=== PATIENT | female | born 1940 | race Caucasian/White ===

== ENCOUNTER → 2016-08-13 | Outpatient (CLI) | payer MEDICARE, MEDICAID ==
[~2016-08-13] MED LIST: BENA10TA3 PO; BUSP15 PO; CHOL200018 PO; CLON.2 PO; FAMO20 PO; FISH1CAP27 PO; FLUO-191 PO; GLIM4 PO; METF500T4 PO; SIMV-259 PO; SITA100 PO; SULF-168 PO; TRAVZOS OU; TRAZ-144 PO; VERA240SR PO
== END | disposition home or self-care (01) ==
LOC: RADPV 14:26
PROVIDERS: ATTEND Legal Medicine
DX: M50.321 Other cervical disc degeneration at C4-C5 level (principal); M50.322 Other cervical disc degeneration at C5-C6 level; M50.323 Other cervical disc degeneration at C6-C7 level; M47.812 Spondylosis without myelopathy or radiculopathy, cervical region; M25.78 Osteophyte, vertebrae; M51.36 Other intervertebral disc degeneration, lumbar region; M51.37 Other intervertebral disc degeneration, lumbosacral region; M47.816 Spondylosis without myelopathy or radiculopathy, lumbar region; I70.0 Atherosclerosis of aorta; M47.814 Spondylosis without myelopathy or radiculopathy, thoracic region; M19.012 Primary osteoarthritis, left shoulder; M25.812 Other specified joint disorders, left shoulder
CPT/HCPCS: 72040; 72070; 72100

== ENCOUNTER → 2017-05-26 | Outpatient (CLI) | payer MEDICARE, MEDICAID | END | disposition home or self-care (01) | LOC: RADPV 07:43 | PROVIDERS: ATTEND Legal Medicine | DX: M19.012 Primary osteoarthritis, left shoulder (principal); M75.32 Calcific tendinitis of left shoulder; M19.042 Primary osteoarthritis, left hand; M51.37 Other intervertebral disc degeneration, lumbosacral region; M46.06 Spinal enthesopathy, lumbar region | CPT/HCPCS: 72100 ==

== ENCOUNTER 2017-06-11 21:06 | Emergency (ER) | payer MEDICARE, MEDICAID ==
[~2017-06-11] VITALS: Ht 160 cm; Wt 90.5 kg
[~2017-06-11 21:06] MED LIST changes: +ASPI-1182 PO; -BENA10TA3 PO; +BENA20 PO; +BETH25 PO; +DULO60CA44 PO; -FLUO-191 PO; +ICOS1CAP PO; +LINA5TAB PO; +NAPR-58 PO; +QUET25TA PO; -SITA100 PO; -SULF-168 PO; -TRAVZOS OU
[2017-06-11 21:57] LABS: BASOPHILS % (AUTO) 0.8 % (0.0-2.0); EOSINOPHILS % (AUTO) 3.5 % (1.0-6.0); HEMATOCRIT 35.7 % (36-46); HEMOGLOBIN 12.1 g/dL (12.0-16.0); LYMPHOCYTES # (AUTO) 2.2 K/uL (1.0-4.8); LYMPHOCYTES % (AUTO) 26.3 % (22.0-44.0); MEAN CORPUSCULAR HEMOGLOBIN 28.7 pg (26.0-34.0); MEAN CORPUSCULAR HGB CONC 33.9 G/dL (31.0-37.0); MEAN CORPUSCULAR VOLUME 85 fL (80-100); MONOCYTES # (AUTO) 0.6 K/uL (0.1-1.0); MONOCYTES % (AUTO) 7.2 % (2.0-9.0); NEUTROPHILS # (AUTO) 5.3 K/uL (1.8-7.7); NEUTROPHILS % (AUTO) 62.2 % (40.0-70.0); PLATELET COUNT (AUTO) 255 K/uL (150-450); RED BLOOD CELL COUNT(AUTO) 4.22 MIL/uL (4.00-5.20); RED CELL DISTRIBUTION WIDTH 14.4 % (11.5-14.5)
[2017-06-11 22:01] LABS: CALCIUM, TOTAL 9.6 mg/dL (8.8-10.5); CREATININE 1.43 mg/dL (0.60-1.30); POTASSIUM 4.7 mmol/L (3.5-5.1)
[2017-06-11 22:05] LABS: PROTHROMBIN TIME 10.7 SEC (9.4-11.6)
[2017-06-11 22:06] LABS: ALBUMIN 3.4 g/dL (3.4-5.0); BILIRUBIN,TOTAL 0.4 mg/dL (0.1-1.0); TOTAL PROTEIN, SERUM 7.7 g/dL (6.4-8.2)
[2017-06-11] MEDS ORDERED: SODIUM CHLORIDE 0.9% 500 ML IV ONE (23:30)
[2017-06-12 00:11] VITALS: BP 115/60
[2017-06-12 14:05] LABS: GLUCOSE,POINT OF CARE 132 MG/DL (70-110)
== END 2017-06-12 00:23 | disposition home or self-care (01) ==
LOC: EMS 21:07
DX: S06.2X9A Diffuse traumatic brain injury with loss of consciousness of unspecified duration, initial encounter (principal); E86.0 Dehydration; R55 Syncope and collapse; E11.9 Type 2 diabetes mellitus without complications; K21.9 Gastro-esophageal reflux disease without esophagitis; E78.00 Pure hypercholesterolemia, unspecified; I10 Essential (primary) hypertension; Z79.82 Long term (current) use of aspirin; W18.2XXA Fall in (into) shower or empty bathtub, initial encounter; Y93.E1 Activity, personal bathing and showering; Y92.89 Other specified places as the place of occurrence of the external cause; Y99.8 Other external cause status
CPT/HCPCS: 70450; 71045; 80053; 81002; 82962; 84484; 85025; 85610; 93005; 99285; J7040

== ENCOUNTER 2017-11-08 16:37 | Emergency (ER) | payer MEDICARE, MEDICAID ==
[~2017-11-08] VITALS: Ht 160 cm; Wt 109.1 kg
[~2017-11-08 16:37] MED LIST changes: -METF500T4 PO; +METF500T6 PO; -TRAZ-144 PO; +TRAZ-219 PO
[2017-11-08 17:03] LABS: GLUCOSE,POINT OF CARE 127 MG/DL (70-110)
[2017-11-08] MEDS ORDERED: TraMADol HCL 50 MG TABLET PO ONE (18:15)
[2017-11-08 20:28] VITALS: BP 115/56
== END 2017-11-08 21:04 | disposition home or self-care (01) ==
LOC: EMS 16:38
DX: M54.5 Low back pain (principal); K21.9 Gastro-esophageal reflux disease without esophagitis; E78.00 Pure hypercholesterolemia, unspecified; I10 Essential (primary) hypertension; F32.9 Major depressive disorder, single episode, unspecified; E11.9 Type 2 diabetes mellitus without complications; Z79.82 Long term (current) use of aspirin; Z79.84 Long term (current) use of oral hypoglycemic drugs
CPT/HCPCS: 72110; 99284

== ENCOUNTER 2017-12-18 21:58 | Emergency (ER) | payer MEDICARE, MEDICAID ==
[~2017-12-18] VITALS: Ht 162.6 cm; Wt 100.0 kg
[~2017-12-18 21:58] MED LIST changes: +ACET-2247 PO; +AMLO-511 PO; +APIX2.5T PO; +AUD NEB; +BISA10S PR; +CEFT1FRO3 IVPB; +INSU100V SQ; +METF-960 PO; -METF500T6 PO; +METO-558 PO; +ONDA4 PO; +PANT40TA25 PO
[2017-12-18] MEDS ORDERED: LINA5TAB PO (22:30)
[2017-12-18] MEDS ORDERED: ZOLP10TA7 PO (22:30)
[2017-12-18 22:50] LABS: BASOPHILS % (AUTO) 1.2 % (0.0-2.0); EOSINOPHILS % (AUTO) 3.6 % (1.0-6.0); HEMATOCRIT 29.5 % (36-46); HEMOGLOBIN 9.8 g/dL (12.0-16.0); LYMPHOCYTES # (AUTO) 2.4 K/uL (1.0-4.8); LYMPHOCYTES % (AUTO) 39.9 % (22.0-44.0); MEAN CORPUSCULAR HEMOGLOBIN 28.4 pg (26.0-34.0); MEAN CORPUSCULAR HGB CONC 33.3 G/dL (31.0-37.0); MEAN CORPUSCULAR VOLUME 85 fL (80-100); MONOCYTES # (AUTO) 0.5 K/uL (0.1-1.0); MONOCYTES % (AUTO) 8.1 % (2.0-9.0); NEUTROPHILS # (AUTO) 2.8 K/uL (1.8-7.7); NEUTROPHILS % (AUTO) 47.2 % (40.0-70.0); PLATELET COUNT (AUTO) 397 K/uL (150-450); RED BLOOD CELL COUNT(AUTO) 3.45 MIL/uL (4.00-5.20); RED CELL DISTRIBUTION WIDTH 16.9 % (11.5-14.5)
[2017-12-18 23:11] LABS: CALCIUM, TOTAL 9.2 mg/dL (8.8-10.5); CREATININE 1.38 mg/dL (0.60-1.30); POTASSIUM 3.3 mmol/L (3.5-5.1)
[2017-12-18 23:19] LABS: ALBUMIN 2.9 g/dL (3.4-5.0); BILIRUBIN,TOTAL 0.2 mg/dL (0.1-1.0)
[2017-12-19 00:26] VITALS: BP 112/68
== END 2017-12-19 01:22 | disposition home or self-care (01) ==
LOC: EMS 22:00
DX: R33.9 Retention of urine, unspecified (principal); I48.91 Unspecified atrial fibrillation; F32.9 Major depressive disorder, single episode, unspecified; E11.9 Type 2 diabetes mellitus without complications; E78.00 Pure hypercholesterolemia, unspecified; I10 Essential (primary) hypertension; F20.9 Schizophrenia, unspecified; Z79.01 Long term (current) use of anticoagulants; Z79.899 Other long term (current) drug therapy; Z79.84 Long term (current) use of oral hypoglycemic drugs
CPT/HCPCS: 51702; 99284

== ENCOUNTER 2018-03-03 10:36 | Emergency (ER) | payer MEDICARE, MEDICAID ==
[~2018-03-03] VITALS: Ht 162.6 cm; Wt 77.3 kg
[~2018-03-03 10:36] MED LIST changes: -ACET-2247 PO; -ASPI-1182 PO; -AUD NEB; -BENA20 PO; -BETH25 PO; -BISA10S PR; -BUSP15 PO; -CEFT1FRO3 IVPB; -DULO60CA44 PO; -FAMO20 PO; -ICOS1CAP PO; -INSU100V SQ; -METF-960 PO; -NAPR-58 PO; -ONDA4 PO; -TRAZ-219 PO; -VERA240SR PO; +ZOLP10TA7 PO
[2018-03-03 11:19] LABS: GLUCOSE,POINT OF CARE 425 MG/DL (70-110)
[2018-03-03] MEDS ORDERED: DOCU250C91 PO (11:21)
[2018-03-03] MEDS ORDERED: VITAD1000 PO (11:21)
[2018-03-03] MEDS ORDERED: BENA20 PO (11:21)
[2018-03-03] MEDS ORDERED: BETH25 PO (11:21)
[2018-03-03] MEDS ORDERED: OMEG-107 PO (11:21)
[2018-03-03] MEDS ORDERED: NAPR-58 PO (11:21)
[2018-03-03] MEDS ORDERED: ICOS0.5C PO (11:21)
[2018-03-03] MEDS ORDERED: SODIUM CHLORIDE 0.9% 1,000 ML IV ONE (11:30)
[2018-03-03 12:20] LABS: BASOPHILS % (AUTO) 0.6 % (0.0-2.0); HEMATOCRIT 35.9 % (36-46); HEMOGLOBIN 11.9 g/dL (12.0-16.0); LYMPHOCYTES # (AUTO) 1.5 K/uL (1.0-4.8); LYMPHOCYTES % (AUTO) 14.9 % (22.0-44.0); MEAN CORPUSCULAR HEMOGLOBIN 27.3 pg (26.0-34.0); MEAN CORPUSCULAR HGB CONC 33.1 G/dL (31.0-37.0); MEAN CORPUSCULAR VOLUME 83 fL (80-100); MONOCYTES # (AUTO) 0.5 K/uL (0.1-1.0); MONOCYTES % (AUTO) 5.3 % (2.0-9.0); NEUTROPHILS # (AUTO) 7.9 K/uL (1.8-7.7); NEUTROPHILS % (AUTO) 77.2 % (40.0-70.0); PLATELET COUNT (AUTO) 382 K/uL (150-450); RED BLOOD CELL COUNT(AUTO) 4.34 MIL/uL (4.00-5.20); RED CELL DISTRIBUTION WIDTH 14.3 % (11.5-14.5)
[2018-03-03] MEDS ORDERED: MORPHINE SULFATE 4 MG/ML SYRINGE IVP ONE (12:30)
[2018-03-03] MEDS ORDERED: ONDANSETRON HCL 4 MG/2 ML VIAL IVP ONE (12:30)
[2018-03-03 12:31] LABS: CALCIUM, TOTAL 9.2 mg/dL (8.8-10.5); CREATININE 1.14 mg/dL (0.60-1.30); POTASSIUM 3.8 mmol/L (3.5-5.1)
[2018-03-03 12:37] LABS: ALBUMIN 3.1 g/dL (3.4-5.0); BILIRUBIN,TOTAL 0.3 mg/dL (0.1-1.0); TOTAL PROTEIN, SERUM 8.5 g/dL (6.4-8.2)
[2018-03-03 14:22] LABS: APPEARANCE,URINE CLOUDY (CLEAR); BILIRUBIN,URINE NEGATIVE (NEGATIVE); GLUCOSE, URINE (UA) >=1000 mg/dL (NEGATIVE); KETONES,URINE NEGATIVE (NEGATIVE); LEUKOCYTE ESTERASE ,URINE SMALL (NEGATIVE); NITRATE,URINE NEGATIVE (NEGATIVE); OCCULT BLOOD,URINE LARGE (NEGATIVE); PROTEIN,URINE TRACE (NEGATIVE); UROBILINOGEN,URINE 0.2 mg/dL (<=1.0)
[2018-03-03 14:24] LABS: GLUCOSE,POINT OF CARE 246 MG/DL (70-110)
[2018-03-03 14:31] LABS: BACTERIA,URINE None Seen /HPF (None Seen); RBC,URINE 51-100 /HPF (0-2); SQUAMOUS EPITHELIAL CELL,UR Few /LPF (None Seen)
[2018-03-03 16:14] VITALS: BP 157/83
== END 2018-03-03 16:40 | disposition home or self-care (01) ==
LOC: EMS 10:37
DX: R19.7 Diarrhea, unspecified (principal); R31.9 Hematuria, unspecified; R10.30 Lower abdominal pain, unspecified; K92.1 Melena; I10 Essential (primary) hypertension; I48.91 Unspecified atrial fibrillation; E11.9 Type 2 diabetes mellitus without complications; K21.9 Gastro-esophageal reflux disease without esophagitis; E78.00 Pure hypercholesterolemia, unspecified; F20.9 Schizophrenia, unspecified; M19.90 Unspecified osteoarthritis, unspecified site
CPT/HCPCS: 36415; 80053; 81001; 82962; 83690; 85025; 87086; 96361; 96374; 96375; 99283; J2270; J2405; J7030

== ENCOUNTER 2018-03-04 09:43 | Emergency (ER) | payer MEDICARE, MEDICAID ==
[~2018-03-04] VITALS: Ht 172.7 cm; Wt 100.0 kg
[~2018-03-04 09:43] MED LIST changes: +BENA20 PO; +BETH25 PO; +DOCU250C91 PO; +ICOS0.5C PO; +NAPR-58 PO; +OMEG-107 PO; +VITAD1000 PO
[2018-03-04 10:19] LABS: GLUCOSE,POINT OF CARE 307 MG/DL (70-110)
[2018-03-04] MEDS ORDERED: IOVERSOL 350 MG/ML 150 ML VIAL ONE (11:41)
[2018-03-04] MEDS ORDERED: SODIUM CHLORIDE 0.9% 100 ML ONE (11:41)
[2018-03-04] MEDS ORDERED: ONDANSETRON HCL 4 MG/2 ML VIAL IVP ONE (12:00)
[2018-03-04] MEDS ORDERED: MORPHINE SULFATE 4 MG/ML SYRINGE IVP ONE (12:00)
[2018-03-04] MEDS ORDERED: ONDANSETRON HCL 4 MG/2 ML VIAL IM ONE (12:30)
[2018-03-04] MEDS ORDERED: MORPHINE SULFATE 4 MG/ML SYRINGE IM ONE (12:30)
[2018-03-04 13:24] LABS: BASOPHILS % (AUTO) 0.4 % (0.0-2.0); EOSINOPHILS % (AUTO) 1.2 % (1.0-6.0); HEMATOCRIT 35.6 % (36-46); HEMOGLOBIN 11.6 g/dL (12.0-16.0); LYMPHOCYTES # (AUTO) 1.7 K/uL (1.0-4.8); LYMPHOCYTES % (AUTO) 12.5 % (22.0-44.0); MEAN CORPUSCULAR HEMOGLOBIN 27.2 pg (26.0-34.0); MEAN CORPUSCULAR HGB CONC 32.6 G/dL (31.0-37.0); MEAN CORPUSCULAR VOLUME 83 fL (80-100); MONOCYTES # (AUTO) 0.5 K/uL (0.1-1.0); NEUTROPHILS # (AUTO) 11.2 K/uL (1.8-7.7); NEUTROPHILS % (AUTO) 81.9 % (40.0-70.0); PLATELET COUNT (AUTO) 388 K/uL (150-450); RED BLOOD CELL COUNT(AUTO) 4.28 MIL/uL (4.00-5.20); RED CELL DISTRIBUTION WIDTH 14.5 % (11.5-14.5)
[2018-03-04 13:34] LABS: CALCIUM, TOTAL 9.2 mg/dL (8.8-10.5); CREATININE 1.48 mg/dL (0.60-1.30); POTASSIUM 4.1 mmol/L (3.5-5.1)
[2018-03-04 13:40] LABS: ALBUMIN 3.2 g/dL (3.4-5.0); BILIRUBIN,TOTAL 0.3 mg/dL (0.1-1.0); TOTAL PROTEIN, SERUM 8.6 g/dL (6.4-8.2)
[2018-03-04 15:15] LABS: APPEARANCE,URINE CLOUDY (CLEAR); BILIRUBIN,URINE NEGATIVE (NEGATIVE); GLUCOSE, URINE (UA) 500 mg/dL (NEGATIVE); KETONES,URINE NEGATIVE (NEGATIVE); LEUKOCYTE ESTERASE ,URINE MODERATE (NEGATIVE); NITRATE,URINE NEGATIVE (NEGATIVE); OCCULT BLOOD,URINE LARGE (NEGATIVE); PH,URINE 5.5 (5.0-8.0); PROTEIN,URINE POS 1+ (NEGATIVE); UROBILINOGEN,URINE 0.2 mg/dL (<=1.0)
[2018-03-04 15:23] LABS: RBC,URINE >100 /HPF (0-2)
[2018-03-04 15:24] LABS: BACTERIA,URINE None Seen /HPF (None Seen); SQUAMOUS EPITHELIAL CELL,UR Few /LPF (None Seen)
[2018-03-04 15:59] VITALS: BP 139/71
== END 2018-03-04 16:16 | disposition home or self-care (01) ==
LOC: EMS 09:45
DX: N39.0 Urinary tract infection, site not specified (principal); I48.91 Unspecified atrial fibrillation; E11.9 Type 2 diabetes mellitus without complications; K21.9 Gastro-esophageal reflux disease without esophagitis; I10 Essential (primary) hypertension; E78.00 Pure hypercholesterolemia, unspecified; F20.9 Schizophrenia, unspecified; F32.9 Major depressive disorder, single episode, unspecified; M19.90 Unspecified osteoarthritis, unspecified site
CPT/HCPCS: 36415; 74177; 80053; 81001; 82962; 85025; 87086; 96372; 99284; J2270; J2405; J7050; Q9967

== ENCOUNTER 2018-03-09 15:01 | Emergency (ER) | payer MEDICARE, MEDICAID ==
[~2018-03-09] VITALS: Ht 162.6 cm; Wt 100.0 kg
[2018-03-09 18:00] LABS: BASOPHILS % (AUTO) 0.6 % (0.0-2.0); EOSINOPHILS % (AUTO) 2.3 % (1.0-6.0); HEMATOCRIT 36.7 % (36-46); HEMOGLOBIN 11.9 g/dL (12.0-16.0); LYMPHOCYTES # (AUTO) 2.7 K/uL (1.0-4.8); LYMPHOCYTES % (AUTO) 27.2 % (22.0-44.0); MEAN CORPUSCULAR HEMOGLOBIN 26.9 pg (26.0-34.0); MEAN CORPUSCULAR HGB CONC 32.6 G/dL (31.0-37.0); MEAN CORPUSCULAR VOLUME 83 fL (80-100); MONOCYTES # (AUTO) 0.5 K/uL (0.1-1.0); MONOCYTES % (AUTO) 5.3 % (2.0-9.0); NEUTROPHILS # (AUTO) 6.4 K/uL (1.8-7.7); NEUTROPHILS % (AUTO) 64.6 % (40.0-70.0); PLATELET COUNT (AUTO) 464 K/uL (150-450); RED BLOOD CELL COUNT(AUTO) 4.44 MIL/uL (4.00-5.20); RED CELL DISTRIBUTION WIDTH 14.2 % (11.5-14.5)
[2018-03-09 18:06] LABS: CALCIUM, TOTAL 9.5 mg/dL (8.8-10.5); CREATININE 1.25 mg/dL (0.60-1.30); POTASSIUM 3.9 mmol/L (3.5-5.1)
[2018-03-09 18:13] LABS: ALBUMIN 3.4 g/dL (3.4-5.0); BILIRUBIN,TOTAL 0.2 mg/dL (0.1-1.0); TOTAL PROTEIN, SERUM 8.9 g/dL (6.4-8.2)
[2018-03-09] MEDS ORDERED: AMLO-512 PO (19:09)
[2018-03-09] MEDS ORDERED: SODIUM PHOS/SODIUM BIPHOS 133 ML ENEMA PR ONE (19:15)
[2018-03-09] MEDS ORDERED: MAGNESIUM CITRATE 300 ML ORAL SOLUTION PO ONE (19:15)
[2018-03-09 20:02] LABS: APPEARANCE,URINE CLEAR (CLEAR); BILIRUBIN,URINE NEGATIVE (NEGATIVE); GLUCOSE, URINE (UA) 100 mg/dL (NEGATIVE); KETONES,URINE NEGATIVE (NEGATIVE); LEUKOCYTE ESTERASE ,URINE TRACE (NEGATIVE); NITRATE,URINE NEGATIVE (NEGATIVE); OCCULT BLOOD,URINE LARGE (NEGATIVE); PROTEIN,URINE NEGATIVE (NEGATIVE); UROBILINOGEN,URINE 0.2 mg/dL (<=1.0)
[2018-03-09 20:27] LABS: BACTERIA,URINE Rare /HPF (None Seen); SQUAMOUS EPITHELIAL CELL,UR Few /LPF (None Seen)
[2018-03-09 21:12] VITALS: BP 143/87
== END 2018-03-09 21:48 | disposition home or self-care (01) ==
LOC: EMS 15:05
DX: R10.30 Lower abdominal pain, unspecified (principal); R31.9 Hematuria, unspecified; R30.0 Dysuria; I48.91 Unspecified atrial fibrillation; E11.9 Type 2 diabetes mellitus without complications; K21.9 Gastro-esophageal reflux disease without esophagitis; E78.00 Pure hypercholesterolemia, unspecified; I10 Essential (primary) hypertension; F20.9 Schizophrenia, unspecified; F32.9 Major depressive disorder, single episode, unspecified; M19.90 Unspecified osteoarthritis, unspecified site
CPT/HCPCS: 87086; 93005

== ENCOUNTER 2018-04-09 15:45 | Inpatient (IN) | payer MEDICARE, MEDICAID ==
[~2018-04-09] VITALS: Ht 160 cm; Wt 83.4 kg
[~2018-04-09 15:45] MED LIST changes: -AMLO-511 PO; +AMLO-512 PO; -CHOL200018 PO; -OMEG-107 PO
[2018-04-09 15:58] LABS: GLUCOSE,POINT OF CARE 264 MG/DL (70-110)
[2018-04-09] MEDS ORDERED: SODIUM PHOS/SODIUM BIPHOS 133 ML ENEMA PR ONE (18:45)
[2018-04-09] MEDS ORDERED: MAGNESIUM CITRATE 300 ML ORAL SOLUTION PO ONE (18:45)
[2018-04-09 18:51] LABS: BASOPHILS % (AUTO) 0.5 % (0.0-2.0); EOSINOPHILS % (AUTO) 2.3 % (1.0-6.0); HEMATOCRIT 35.5 % (36-46); HEMOGLOBIN 11.7 g/dL (12.0-16.0); LYMPHOCYTES # (AUTO) 2.1 K/uL (1.0-4.8); MEAN CORPUSCULAR HEMOGLOBIN 26.7 pg (26.0-34.0); MEAN CORPUSCULAR HGB CONC 32.9 G/dL (31.0-37.0); MEAN CORPUSCULAR VOLUME 81 fL (80-100); MONOCYTES # (AUTO) 0.7 K/uL (0.1-1.0); MONOCYTES % (AUTO) 6.5 % (2.0-9.0); NEUTROPHILS # (AUTO) 7.3 K/uL (1.8-7.7); NEUTROPHILS % (AUTO) 70.7 % (40.0-70.0); PLATELET COUNT (AUTO) 379 K/uL (150-450); RED BLOOD CELL COUNT(AUTO) 4.38 MIL/uL (4.00-5.20); RED CELL DISTRIBUTION WIDTH 15.6 % (11.5-14.5)
[2018-04-09 19:12] LABS: CALCIUM, TOTAL 9.4 mg/dL (8.8-10.5); CREATININE 1.04 mg/dL (0.60-1.30)
[2018-04-09] MEDS ORDERED: 0.9% SODIUM CHLORIDE 10 ML SYRINGE IVP PRN (19:15)
[2018-04-09] MEDS ORDERED: MAGNESIUM HYDROXIDE SUSPENSION 30 ML UDCUP PO PRN (19:15)
[2018-04-09] MEDS ORDERED: ONDANSETRON HCL 4 MG/2 ML VIAL IVP PRN ×2 (19:15)
[2018-04-09] MEDS ORDERED: HEPARIN SODIUM,PORCINE 5,000 UNITS/ML VIAL SQ SCH (19:15)
[2018-04-09] MEDS ORDERED: ZOLPIDEM TARTRATE 5 MG TABLET PO PRN (19:15)
[2018-04-09] MEDS ORDERED: BISACODYL 10 MG RECTAL RECTAL SUPPOSITORY PR PRN (19:15)
[2018-04-09] MEDS ORDERED: ACETAMINOPHEN 325 MG TABLET PO PRN (19:15)
[2018-04-09] MEDS ORDERED: IPRATROPIUM BROMIDE 0.5 MG/2.5 ML NEB SOLUTION NEB PRN (19:15)
[2018-04-09] MEDS ORDERED: ALBUTEROL SULFATE 2.5 MG/0.5 ML NEB SOLUTION NEB PRN (19:15)
[2018-04-09] MEDS ORDERED: DEXTROSE 50%-WATER 25 GM/50 ML SYRINGE IVP PRN (19:15)
[2018-04-09 19:17] LABS: ALBUMIN 3.1 g/dL (3.4-5.0); BILIRUBIN,TOTAL 0.3 mg/dL (0.1-1.0); TOTAL PROTEIN, SERUM 8.2 g/dL (6.4-8.2)
[2018-04-09 20:07] VITALS: BP 165/79
[2018-04-09] MEDS ORDERED: NAPROXEN 500 MG TABLET PO SCH (21:00)
[2018-04-09] MEDS ORDERED: CloNIDine HCL 0.1 MG TABLET PO SCH (21:00)
[2018-04-09] MEDS ORDERED: SIMVASTATIN 10 MG TABLET PO SCH (21:00)
[2018-04-09] MEDS ORDERED: SODIUM CHLORIDE 0.9% 100 ML ONE (21:05)
[2018-04-09] MEDS ORDERED: IOVERSOL 350 MG/ML 100 ML VIAL ONE (21:05)
[2018-04-09] MEDS: INSULIN LISPRO 100 UNITS/ML SQ PRN (22:12)
[2018-04-10 00:10] VITALS: BP 151/73
[2018-04-10 04:43] VITALS: BP 149/79
[2018-04-10 05:42] LABS: BASOPHILS % (AUTO) 0.4 % (0.0-2.0); EOSINOPHILS % (AUTO) 2.5 % (1.0-6.0); HEMATOCRIT 33.1 % (36-46); HEMOGLOBIN 10.9 g/dL (12.0-16.0); LYMPHOCYTES # (AUTO) 2.2 K/uL (1.0-4.8); LYMPHOCYTES % (AUTO) 23.5 % (22.0-44.0); MEAN CORPUSCULAR HEMOGLOBIN 26.6 pg (26.0-34.0); MEAN CORPUSCULAR VOLUME 81 fL (80-100); MONOCYTES # (AUTO) 0.5 K/uL (0.1-1.0); MONOCYTES % (AUTO) 5.9 % (2.0-9.0); NEUTROPHILS # (AUTO) 6.3 K/uL (1.8-7.7); NEUTROPHILS % (AUTO) 67.7 % (40.0-70.0); PLATELET COUNT (AUTO) 360 K/uL (150-450); RED CELL DISTRIBUTION WIDTH 15.1 % (11.5-14.5)
[2018-04-10] MEDS: INSULIN LISPRO 100 UNITS/ML SQ PRN ×2 (05:47→12:01)
[2018-04-10 05:54] LABS: CALCIUM, TOTAL 9.1 mg/dL (8.8-10.5); CREATININE 0.95 mg/dL (0.60-1.30); POTASSIUM 3.9 mmol/L (3.5-5.1)
[2018-04-10 05:55] LABS: HEMOGLOBIN A1C 8.7 % (4.5-6.2)
[2018-04-10 06:01] LABS: LACTIC ACID 0.9 mmol/L (0.4-2.0)
[2018-04-10 06:05] LABS: MAGNESIUM 2.4 mg/dL (1.80-2.40); THYROID STIMULATING HORMONE 8.08 uIU/mL (0.36-3.74)
[2018-04-10] MEDS ORDERED: NAPROXEN 500 MG TABLET PO SCH (08:00)
[2018-04-10 08:03] VITALS: BP_SYST 178; BP_SYST 187; BP_DIAS 81
[2018-04-10] MEDS ORDERED: BENAZEPRIL HCL 20 MG TABLET PO SCH (09:00)
[2018-04-10] MEDS ORDERED: METOPROLOL SUCCINATE 50 MG ER TABLET PO SCH (09:00)
[2018-04-10] MEDS ORDERED: BETHANECHOL CHLORIDE 25 MG TABLET PO SCH (09:00)
[2018-04-10] MEDS ORDERED: AmLODIPine BESYLATE 10 MG TABLET PO SCH (09:00)
[2018-04-10] MEDS ORDERED: PANTOPRAZOLE SODIUM 40 MG/VIAL IVP SCH (09:00)
[2018-04-10] MEDS ORDERED: CHOLECALCIFEROL (VIT D3) 1,000 UNITS TABLET PO SCH (09:00)
[2018-04-10] MEDS ORDERED: QUEtiapine FUMARATE 25 MG TABLET PO SCH (09:00)
[2018-04-10] MEDS ORDERED: OMEGA-3/DHA/EPA/FISH OIL 1,000 MG CAPSULE PO SCH (09:00)
[2018-04-10] MEDS ORDERED: DOCUSATE SODIUM 250 MG CAPSULE PO SCH (09:00)
[2018-04-10] MEDS ORDERED: APIXABAN 2.5 MG TABLET PO SCH (10:00)
[2018-04-10 10:48] LABS: GLUCOMETER DEV NAME(LOC) 6N.2; GLUCOSE,POINT OF CARE 177 MG/DL (70-110)
[2018-04-10 10:48] LABS: GLUCOMETER DEV NAME(LOC) 6N.1; GLUCOSE,POINT OF CARE 179 MG/DL (70-110)
[2018-04-10 11:20] VITALS: BP 164/95
[2018-04-10] MEDS ORDERED: CloNIDine HCL 0.1 MG TABLET PO PRN (12:45)
[2018-04-10] MEDS ORDERED: LEVO25TA9 PO (13:01)
[2018-04-10 16:16] VITALS: BP 136/68
[2018-04-10 17:39] LABS: GLUCOMETER DEV NAME(LOC) 6N.2; GLUCOSE,POINT OF CARE 263 MG/DL (70-110)
== END 2018-04-10 17:35 | disposition home or self-care (01) | DRG 392 ==
LOC: EMS 15:46 → 6N 19:40
PROVIDERS: ADMIT Internal Medicine Geriatric Medicine; ATTEND Internal Medicine Geriatric Medicine
DX: K59.00 Constipation, unspecified (principal); I11.0 Hypertensive heart disease with heart failure; N32.89 Other specified disorders of bladder; I50.9 Heart failure, unspecified; K21.9 Gastro-esophageal reflux disease without esophagitis; M19.90 Unspecified osteoarthritis, unspecified site; E78.00 Pure hypercholesterolemia, unspecified; H26.9 Unspecified cataract; I48.91 Unspecified atrial fibrillation; D64.9 Anemia, unspecified; E11.65 Type 2 diabetes mellitus with hyperglycemia; Z87.440 Personal history of urinary (tract) infections; E03.9 Hypothyroidism, unspecified; E66.9 Obesity, unspecified; E78.5 Hyperlipidemia, unspecified; Z68.32 Body mass index [BMI] 32.0-32.9, adult; Z79.84 Long term (current) use of oral hypoglycemic drugs; Z79.899 Other long term (current) drug therapy
CPT/HCPCS: 74018; 74178; 83036; 83605; 83735; 84443; C9113; G0378; J7050

== ENCOUNTER 2018-05-01 16:20 | Emergency (ER) | payer MEDICARE, MEDICAID ==
[~2018-05-01] VITALS: Ht 172.7 cm; Wt 100.0 kg
[~2018-05-01 16:20] MED LIST changes: +LEVO25TA9 PO
[2018-05-01 17:14] LABS: GLUCOSE,POINT OF CARE 270 MG/DL (70-110)
[2018-05-01 18:35] LABS: BASOPHILS % (AUTO) 0.5 % (0.0-2.0); EOSINOPHILS % (AUTO) 2.2 % (1.0-6.0); HEMOGLOBIN 11.8 g/dL (12.0-16.0); LYMPHOCYTES # (AUTO) 1.9 K/uL (1.0-4.8); LYMPHOCYTES % (AUTO) 19.9 % (22.0-44.0); MEAN CORPUSCULAR HEMOGLOBIN 26.4 pg (26.0-34.0); MEAN CORPUSCULAR HGB CONC 32.7 G/dL (31.0-37.0); MEAN CORPUSCULAR VOLUME 81 fL (80-100); MONOCYTES # (AUTO) 0.5 K/uL (0.1-1.0); NEUTROPHILS # (AUTO) 6.8 K/uL (1.8-7.7); NEUTROPHILS % (AUTO) 72.4 % (40.0-70.0); PLATELET COUNT (AUTO) 376 K/uL (150-450); RED BLOOD CELL COUNT(AUTO) 4.45 MIL/uL (4.00-5.20); RED CELL DISTRIBUTION WIDTH 16.4 % (11.5-14.5)
[2018-05-01 18:43] LABS: PROTHROMBIN TIME 10.5 SEC (9.4-11.6)
[2018-05-01 18:44] LABS: CALCIUM, TOTAL 9.3 mg/dL (8.8-10.5); CREATININE 1.13 mg/dL (0.60-1.30); POTASSIUM 4.2 mmol/L (3.5-5.1)
[2018-05-01 18:51] LABS: ALBUMIN 3.2 g/dL (3.4-5.0); BILIRUBIN,TOTAL 0.2 mg/dL (0.1-1.0); TOTAL PROTEIN, SERUM 8.3 g/dL (6.4-8.2)
[2018-05-01] MEDS ORDERED: MAGNESIUM CITRATE 300 ML ORAL SOLUTION PO ONE (21:15)
[2018-05-01] MEDS ORDERED: ACETAMINOPHEN 500 MG TABLET PO ONE (21:15)
[2018-05-01 21:56] LABS: APPEARANCE,URINE CLOUDY (CLEAR); BILIRUBIN,URINE NEGATIVE (NEGATIVE); GLUCOSE, URINE (UA) >=1000 mg/dL (NEGATIVE); KETONES,URINE NEGATIVE (NEGATIVE); LEUKOCYTE ESTERASE ,URINE NEGATIVE (NEGATIVE); NITRATE,URINE NEGATIVE (NEGATIVE); OCCULT BLOOD,URINE LARGE (NEGATIVE); PROTEIN,URINE TRACE (NEGATIVE); UROBILINOGEN,URINE 0.2 mg/dL (<=1.0)
[2018-05-01 22:07] LABS: WBC,URINE 0-2 /HPF (0-5)
[2018-05-01 22:08] LABS: AMORPHOUS SEDIMENT,UR Few /LPF (None Seen); BACTERIA,URINE Few /HPF (None Seen); SQUAMOUS EPITHELIAL CELL,UR Few /LPF (None Seen)
[2018-05-01 23:02] VITALS: BP 145/68
== END 2018-05-01 23:06 | disposition home or self-care (01) ==
LOC: EMS 16:21
DX: E11.65 Type 2 diabetes mellitus with hyperglycemia (principal); R10.84 Generalized abdominal pain; R31.29 Other microscopic hematuria; I10 Essential (primary) hypertension; E78.00 Pure hypercholesterolemia, unspecified; F20.9 Schizophrenia, unspecified; F32.9 Major depressive disorder, single episode, unspecified; I48.91 Unspecified atrial fibrillation; Z79.899 Other long term (current) drug therapy
CPT/HCPCS: 51701; 74022; 74176; 93005

== ENCOUNTER 2018-05-13 17:04 | Inpatient (IN) | payer MEDICARE, MEDICAID ==
[~2018-05-13] VITALS: Ht 157.5 cm; Wt 85.2 kg
[2018-05-13 17:30] LABS: GLUCOSE,POINT OF CARE 303 MG/DL (70-110)
[2018-05-13 18:00] LABS: BASOPHILS % (AUTO) 0.2 % (0.0-2.0); EOSINOPHILS % (AUTO) 2.5 % (1.0-6.0); HEMATOCRIT 33.6 % (36-46); HEMOGLOBIN 11.2 g/dL (12.0-16.0); LYMPHOCYTES # (AUTO) 1.4 K/uL (1.0-4.8); LYMPHOCYTES % (AUTO) 15.6 % (22.0-44.0); MEAN CORPUSCULAR HEMOGLOBIN 26.9 pg (26.0-34.0); MEAN CORPUSCULAR HGB CONC 33.3 G/dL (31.0-37.0); MEAN CORPUSCULAR VOLUME 81 fL (80-100); MONOCYTES # (AUTO) 0.5 K/uL (0.1-1.0); NEUTROPHILS # (AUTO) 6.6 K/uL (1.8-7.7); NEUTROPHILS % (AUTO) 75.7 % (40.0-70.0); PLATELET COUNT (AUTO) 372 K/uL (150-450); RED BLOOD CELL COUNT(AUTO) 4.16 MIL/uL (4.00-5.20); RED CELL DISTRIBUTION WIDTH 16.1 % (11.5-14.5)
[2018-05-13 18:15] LABS: BILIRUBIN,TOTAL 0.2 mg/dL (0.1-1.0); CALCIUM, TOTAL 9.6 mg/dL (8.8-10.5); CREATININE 1.21 mg/dL (0.60-1.30); POTASSIUM 4.4 mmol/L (3.5-5.1)
[2018-05-13] MEDS ORDERED: ACETAMINOPHEN 325 MG TABLET PO ONE (21:45)
[2018-05-13] MEDS ORDERED: ONDANSETRON HCL 4 MG/2 ML VIAL IVP PRN (22:30)
[2018-05-13] MEDS ORDERED: ACETAMINOPHEN 325 MG TABLET PO PRN (22:30)
[2018-05-13] MEDS ORDERED: 0.9% SODIUM CHLORIDE 10 ML SYRINGE IVP PRN (22:30)
[2018-05-13] MEDS ORDERED: SODIUM CHLORIDE 0.9% 1,000 ML IV ONE (22:45)
[2018-05-13 23:31] VITALS: BP 163/94
[2018-05-13] MEDS ORDERED: DEXTROSE 50%-WATER 25 GM/50 ML SYRINGE IVP PRN (23:45)
[2018-05-14] MEDS: CloNIDine HCL 0.1 MG TABLET PO PRN ×2 (00:12→05:37)
[2018-05-14] MEDS: LORazepam 2 MG/ML VIAL IVP PRN ×3 (00:13→19:18)
[2018-05-14] MEDS ORDERED: -PHARMACY VACCINE NOTE- MISC ONE (04:00)
[2018-05-14 04:36] VITALS: BP 170/80
[2018-05-14] MEDS: LEVOTHYROXINE SODIUM 25 MCG TABLET PO SCH (05:37)
[2018-05-14] MEDS: INSULIN LISPRO 100 UNITS/ML SQ PRN ×3 (05:37→17:49)
[2018-05-14 06:23] LABS: BASOPHILS % (AUTO) 0.6 % (0.0-2.0); EOSINOPHILS % (AUTO) 3.3 % (1.0-6.0); HEMATOCRIT 30.5 % (36-46); HEMOGLOBIN 10.1 g/dL (12.0-16.0); LYMPHOCYTES # (AUTO) 1.7 K/uL (1.0-4.8); LYMPHOCYTES % (AUTO) 20.8 % (22.0-44.0); MEAN CORPUSCULAR HEMOGLOBIN 26.6 pg (26.0-34.0); MEAN CORPUSCULAR HGB CONC 32.9 G/dL (31.0-37.0); MEAN CORPUSCULAR VOLUME 81 fL (80-100); MONOCYTES # (AUTO) 0.7 K/uL (0.1-1.0); MONOCYTES % (AUTO) 8.4 % (2.0-9.0); NEUTROPHILS # (AUTO) 5.3 K/uL (1.8-7.7); NEUTROPHILS % (AUTO) 66.9 % (40.0-70.0); PLATELET COUNT (AUTO) 313 K/uL (150-450); RED BLOOD CELL COUNT(AUTO) 3.78 MIL/uL (4.00-5.20); RED CELL DISTRIBUTION WIDTH 16.3 % (11.5-14.5)
[2018-05-14 06:35] LABS: GLUCOMETER DEV NAME(LOC) 6N.2; GLUCOSE,POINT OF CARE 212 MG/DL (70-110)
[2018-05-14 06:54] LABS: ALBUMIN 2.7 g/dL (3.4-5.0); BILIRUBIN,TOTAL 0.2 mg/dL (0.1-1.0); CHOL/HDL RATIO 4.4 (3.9-5.7); CREATININE 1.03 mg/dL (0.60-1.30); MAGNESIUM 1.8 mg/dL (1.80-2.40); POTASSIUM 3.9 mmol/L (3.5-5.1); THYROID STIMULATING HORMONE 5.73 uIU/mL (0.36-3.74)
[2018-05-14 07:07] LABS: HEMOGLOBIN A1C 10.1 % (4.5-6.2)
[2018-05-14 07:17] LABS: AMPHET/METH SCREEN,URINE NEGATIVE (NEGATIVE); BARBITURATE SCREEN, URINE NEGATIVE (NEGATIVE); BENZODIAZEPINES SCREEN,URINE NEGATIVE (NEGATIVE); CANNABINOID SCREEN,URINE NEGATIVE (NEGATIVE); COCAINE SCREEN,URINE NEGATIVE (NEGATIVE); METHADONE SCREEN, URINE NEGATIVE (NEGATIVE); OPIATE SCREEN,URINE NEGATIVE (NEGATIVE)
[2018-05-14 07:21] LABS: PHENCYCLIDINE SCREEN,URINE NEGATIVE (NEGATIVE)
[2018-05-14 07:25] VITALS: BP 141/57
[2018-05-14 07:33] LABS: APPEARANCE,URINE CLOUDY (CLEAR); BILIRUBIN,URINE NEGATIVE (NEGATIVE); GLUCOSE, URINE (UA) >=1000 mg/dL (NEGATIVE); KETONES,URINE NEGATIVE (NEGATIVE); LEUKOCYTE ESTERASE ,URINE SMALL (NEGATIVE); NITRATE,URINE NEGATIVE (NEGATIVE); OCCULT BLOOD,URINE MODERATE (NEGATIVE); PROTEIN,URINE TRACE (NEGATIVE); UROBILINOGEN,URINE 0.2 mg/dL (<=1.0)
[2018-05-14 08:18] LABS: BACTERIA,URINE Moderate /HPF (None Seen); SQUAMOUS EPITHELIAL CELL,UR Few /LPF (None Seen)
[2018-05-14] MEDS ORDERED: APIXABAN 2.5 MG TABLET PO SCH (10:00)
[2018-05-14] MEDS: OMEGA-3/DHA/EPA/FISH OIL 1,000 MG CAPSULE PO SCH (10:17)
[2018-05-14] MEDS: DOCUSATE SODIUM 250 MG CAPSULE PO SCH (10:18)
[2018-05-14] MEDS: NAPROXEN 500 MG TABLET PO SCH ×2 (10:18→19:18)
[2018-05-14] MEDS: PANTOPRAZOLE SODIUM 40 MG DR TABLET PO SCH (10:18)
[2018-05-14] MEDS: METOPROLOL SUCCINATE 50 MG ER TABLET PO SCH (10:18)
[2018-05-14] MEDS: QUEtiapine FUMARATE 25 MG TABLET PO SCH (10:18)
[2018-05-14] MEDS: BENAZEPRIL HCL 20 MG TABLET PO SCH (10:18)
[2018-05-14] MEDS: CHOLECALCIFEROL (VIT D3) 1,000 UNITS TABLET PO SCH (10:18)
[2018-05-14] MEDS: AmLODIPine BESYLATE 10 MG TABLET PO SCH (10:18)
[2018-05-14 11:34] VITALS: BP 161/73
[2018-05-14 11:43] LABS: GLUCOMETER DEV NAME(LOC) 6N.2; GLUCOSE,POINT OF CARE 302 MG/DL (70-110)
[2018-05-14] MEDS ORDERED: SODIUM CHLORIDE 0.9% 500 ML IV ONE (14:11)
[2018-05-14] MEDS: CefTRIAXone 1 GM/DEXTROSE 50 ML IV SCH (15:04)
[2018-05-14 15:14] VITALS: BP 145/66
[2018-05-14 17:43] LABS: GLUCOMETER DEV NAME(LOC) 6N.2; GLUCOSE,POINT OF CARE 222 MG/DL (70-110)
[2018-05-14 20:28] VITALS: BP 124/61
[2018-05-14] MEDS: ZOLPIDEM TARTRATE 10 MG TABLET PO SCH (20:30)
[2018-05-14] MEDS: APIXABAN 2.5 MG TABLET PO SCH (20:31)
[2018-05-14] MEDS: SIMVASTATIN 10 MG TABLET PO SCH (20:32)
[2018-05-14] MEDS: INSULIN GLARGINE,HUM.REC.ANLOG 100 UNITS/ML SQ SCH (20:32)
[2018-05-14 20:44] LABS: GLUCOMETER DEV NAME(LOC) 6N.1; GLUCOSE,POINT OF CARE 286 MG/DL (70-110)
[2018-05-15] VITALS (7 sets, daily range): BP systolic 119–167; BP diastolic 60–83
[2018-05-15] MEDS: LORazepam 2 MG/ML VIAL IVP PRN ×2 (01:14→21:27)
[2018-05-15] MEDS: LEVOTHYROXINE SODIUM 25 MCG TABLET PO SCH (05:36)
[2018-05-15 06:36] LABS: BASOPHILS % (AUTO) 0.6 % (0.0-2.0); HEMATOCRIT 28.9 % (36-46); HEMOGLOBIN 10.2 g/dL (12.0-16.0); LYMPHOCYTES % (AUTO) 27.6 % (22.0-44.0); MEAN CORPUSCULAR HEMOGLOBIN 28.2 pg (26.0-34.0); MEAN CORPUSCULAR HGB CONC 35.3 G/dL (31.0-37.0); MEAN CORPUSCULAR VOLUME 80 fL (80-100); MONOCYTES # (AUTO) 0.6 K/uL (0.1-1.0); MONOCYTES % (AUTO) 7.9 % (2.0-9.0); NEUTROPHILS # (AUTO) 4.3 K/uL (1.8-7.7); NEUTROPHILS % (AUTO) 59.9 % (40.0-70.0); PLATELET COUNT (AUTO) 316 K/uL (150-450); RED BLOOD CELL COUNT(AUTO) 3.63 MIL/uL (4.00-5.20); RED CELL DISTRIBUTION WIDTH 16.2 % (11.5-14.5)
[2018-05-15 06:43] LABS: GLUCOMETER DEV NAME(LOC) 6N.1; GLUCOSE,POINT OF CARE 164 MG/DL (70-110)
[2018-05-15] MEDS: PANTOPRAZOLE SODIUM 40 MG DR TABLET PO SCH (08:41)
[2018-05-15] MEDS: OMEGA-3/DHA/EPA/FISH OIL 1,000 MG CAPSULE PO SCH (08:41)
[2018-05-15] MEDS: DOCUSATE SODIUM 250 MG CAPSULE PO SCH (08:41)
[2018-05-15] MEDS: AmLODIPine BESYLATE 10 MG TABLET PO SCH (08:41)
[2018-05-15] MEDS: METOPROLOL SUCCINATE 50 MG ER TABLET PO SCH (08:41)
[2018-05-15] MEDS: APIXABAN 2.5 MG TABLET PO SCH ×2 (08:42→19:50)
[2018-05-15] MEDS: QUEtiapine FUMARATE 25 MG TABLET PO SCH (08:42)
[2018-05-15] MEDS: BENAZEPRIL HCL 20 MG TABLET PO SCH (08:42)
[2018-05-15] MEDS: NAPROXEN 500 MG TABLET PO SCH ×2 (08:42→14:57)
[2018-05-15] MEDS: CHOLECALCIFEROL (VIT D3) 1,000 UNITS TABLET PO SCH (08:42)
[2018-05-15] MEDS ORDERED: SODIUM CHLORIDE 0.9% 1,000 ML IV ONE ×2 (09:15→09:39)
[2018-05-15] MEDS ORDERED: ICOS1CAP PO (10:59)
[2018-05-15 11:04] LABS: PROTHROMBIN TIME 10.4 SEC (9.4-11.6)
[2018-05-15] MEDS: INSULIN LISPRO 100 UNITS/ML SQ PRN ×3 (11:34→20:55)
[2018-05-15 12:09] LABS: GLUCOMETER DEV NAME(LOC) 6N.2; GLUCOSE,POINT OF CARE 162 MG/DL (70-110)
[2018-05-15] MEDS: CefTRIAXone 1 GM/DEXTROSE 50 ML IV SCH (13:51)
[2018-05-15] MEDS: ACETAMINOPHEN 325 MG TABLET PO PRN ×2 (16:24→21:21)
[2018-05-15] MEDS: CloNIDine HCL 0.1 MG TABLET PO PRN (17:40)
[2018-05-15] MEDS ORDERED: ICOSAPENT ETHYL 1 GM PO SCH (18:00)
[2018-05-15 18:53] LABS: GLUCOMETER DEV NAME(LOC) 6N.1; GLUCOSE,POINT OF CARE 279 MG/DL (70-110)
[2018-05-15] MEDS: SIMVASTATIN 10 MG TABLET PO SCH (19:50)
[2018-05-15] MEDS: ZOLPIDEM TARTRATE 10 MG TABLET PO SCH (19:50)
[2018-05-15] MEDS: INSULIN GLARGINE,HUM.REC.ANLOG 100 UNITS/ML SQ SCH (23:52)
[2018-05-16] VITALS (7 sets, daily range): BP systolic 132–162; BP diastolic 48–81
[2018-05-16] MEDS: INSULIN LISPRO 100 UNITS/ML SQ PRN ×4 (06:05→20:26)
[2018-05-16] MEDS ORDERED: MIDAZOLAM HCL 2 MG/2 ML VIAL IVP ONE (06:42)
[2018-05-16] MEDS ORDERED: LIDOCAINE/PF 2% 5 ML VIAL IM ONE (06:42)
[2018-05-16] MEDS ORDERED: PROPOFOL 1% 20 ML VIAL IVP ONE (06:42)
[2018-05-16] MEDS: APIXABAN 2.5 MG TABLET PO SCH ×2 (08:05→19:29)
[2018-05-16] MEDS: LEVOTHYROXINE SODIUM 25 MCG TABLET PO SCH (08:05)
[2018-05-16] MEDS: NAPROXEN 500 MG TABLET PO SCH ×2 (08:05→20:25)
[2018-05-16] MEDS: BENAZEPRIL HCL 20 MG TABLET PO SCH (08:05)
[2018-05-16] MEDS: CHOLECALCIFEROL (VIT D3) 1,000 UNITS TABLET PO SCH (08:05)
[2018-05-16] MEDS: AmLODIPine BESYLATE 10 MG TABLET PO SCH (08:05)
[2018-05-16] MEDS: DOCUSATE SODIUM 250 MG CAPSULE PO SCH (08:05)
[2018-05-16] MEDS: METOPROLOL SUCCINATE 50 MG ER TABLET PO SCH (08:05)
[2018-05-16] MEDS: OMEGA-3/DHA/EPA/FISH OIL 1,000 MG CAPSULE PO SCH (08:05)
[2018-05-16] MEDS: QUEtiapine FUMARATE 25 MG TABLET PO SCH (08:05)
[2018-05-16] MEDS: PANTOPRAZOLE SODIUM 40 MG DR TABLET PO SCH (08:05)
[2018-05-16 08:13] LABS: GLUCOMETER DEV NAME(LOC) 6N.1; GLUCOSE,POINT OF CARE 180 MG/DL (70-110)
[2018-05-16 08:13] LABS: GLUCOMETER DEV NAME(LOC) 6N.2; GLUCOSE,POINT OF CARE 306 MG/DL (70-110)
[2018-05-16 09:10] LABS: BASOPHILS % (AUTO) 0.7 % (0.0-2.0); EOSINOPHILS % (AUTO) 5.3 % (1.0-6.0); HEMATOCRIT 29.6 % (36-46); HEMOGLOBIN 10.2 g/dL (12.0-16.0); LYMPHOCYTES # (AUTO) 1.8 K/uL (1.0-4.8); LYMPHOCYTES % (AUTO) 28.2 % (22.0-44.0); MEAN CORPUSCULAR HEMOGLOBIN 27.6 pg (26.0-34.0); MEAN CORPUSCULAR HGB CONC 34.4 G/dL (31.0-37.0); MEAN CORPUSCULAR VOLUME 80 fL (80-100); MONOCYTES # (AUTO) 0.5 K/uL (0.1-1.0); MONOCYTES % (AUTO) 7.7 % (2.0-9.0); NEUTROPHILS # (AUTO) 3.8 K/uL (1.8-7.7); NEUTROPHILS % (AUTO) 58.1 % (40.0-70.0); PLATELET COUNT (AUTO) 306 K/uL (150-450); RED BLOOD CELL COUNT(AUTO) 3.69 MIL/uL (4.00-5.20); RED CELL DISTRIBUTION WIDTH 16.1 % (11.5-14.5)
[2018-05-16] MEDS: ACETAMINOPHEN 325 MG TABLET PO PRN ×3 (12:54→23:33)
[2018-05-16] MEDS: CefTRIAXone 1 GM/DEXTROSE 50 ML IV SCH (13:48)
[2018-05-16] MEDS: LORazepam 2 MG/ML VIAL IVP PRN ×2 (13:48→23:34)
[2018-05-16 13:59] LABS: GLUCOMETER DEV NAME(LOC) 6N.1; GLUCOSE,POINT OF CARE 144 MG/DL (70-110)
[2018-05-16 18:43] LABS: GLUCOMETER DEV NAME(LOC) 6N.1; GLUCOSE,POINT OF CARE 254 MG/DL (70-110)
[2018-05-16] MEDS: ZOLPIDEM TARTRATE 10 MG TABLET PO SCH (19:29)
[2018-05-16] MEDS: SIMVASTATIN 10 MG TABLET PO SCH (19:29)
[2018-05-16] MEDS: CloNIDine HCL 0.1 MG TABLET PO PRN (20:25)
[2018-05-16] MEDS: INSULIN GLARGINE,HUM.REC.ANLOG 100 UNITS/ML SQ SCH (20:26)
[2018-05-16 20:58] LABS: GLUCOMETER DEV NAME(LOC) 6N.1; GLUCOSE,POINT OF CARE 251 MG/DL (70-110)
[2018-05-17] MEDS: LEVOTHYROXINE SODIUM 25 MCG TABLET PO SCH (05:24)
[2018-05-17] MEDS: INSULIN LISPRO 100 UNITS/ML SQ PRN ×4 (05:24→20:22)
[2018-05-17 05:32] VITALS: BP 149/71
[2018-05-17] MEDS: ACETAMINOPHEN 325 MG TABLET PO PRN ×4 (05:45→21:36)
[2018-05-17 06:13] LABS: BASOPHILS % (AUTO) 0.9 % (0.0-2.0); EOSINOPHILS % (AUTO) 4.7 % (1.0-6.0); HEMATOCRIT 28.4 % (36-46); HEMOGLOBIN 9.6 g/dL (12.0-16.0); LYMPHOCYTES # (AUTO) 2.1 K/uL (1.0-4.8); LYMPHOCYTES % (AUTO) 31.3 % (22.0-44.0); MEAN CORPUSCULAR HGB CONC 33.9 G/dL (31.0-37.0); MEAN CORPUSCULAR VOLUME 80 fL (80-100); MONOCYTES # (AUTO) 0.5 K/uL (0.1-1.0); MONOCYTES % (AUTO) 7.1 % (2.0-9.0); NEUTROPHILS # (AUTO) 3.8 K/uL (1.8-7.7); PLATELET COUNT (AUTO) 327 K/uL (150-450); RED BLOOD CELL COUNT(AUTO) 3.57 MIL/uL (4.00-5.20); RED CELL DISTRIBUTION WIDTH 16.1 % (11.5-14.5)
[2018-05-17 06:54] LABS: GLUCOMETER DEV NAME(LOC) 6N.2; GLUCOSE,POINT OF CARE 201 MG/DL (70-110)
[2018-05-17 07:04] LABS: CREATININE 1.37 mg/dL (0.60-1.30)
[2018-05-17 08:01] VITALS: BP 145/82
[2018-05-17] MEDS: BENAZEPRIL HCL 20 MG TABLET PO SCH (08:23)
[2018-05-17] MEDS: CHOLECALCIFEROL (VIT D3) 1,000 UNITS TABLET PO SCH (08:24)
[2018-05-17] MEDS: DOCUSATE SODIUM 250 MG CAPSULE PO SCH (08:24)
[2018-05-17] MEDS: AmLODIPine BESYLATE 10 MG TABLET PO SCH (08:24)
[2018-05-17] MEDS: PANTOPRAZOLE SODIUM 40 MG DR TABLET PO SCH (08:24)
[2018-05-17] MEDS: APIXABAN 2.5 MG TABLET PO SCH ×2 (08:24→20:12)
[2018-05-17] MEDS: OMEGA-3/DHA/EPA/FISH OIL 1,000 MG CAPSULE PO SCH (08:25)
[2018-05-17] MEDS: NAPROXEN 500 MG TABLET PO SCH ×2 (08:25→20:12)
[2018-05-17] MEDS: QUEtiapine FUMARATE 25 MG TABLET PO SCH (08:26)
[2018-05-17] MEDS: METOPROLOL SUCCINATE 50 MG ER TABLET PO SCH (08:26)
[2018-05-17 11:58] VITALS: BP 142/54
[2018-05-17] MEDS: LORazepam 2 MG/ML VIAL IVP PRN (13:13)
[2018-05-17] MEDS: CefTRIAXone 1 GM/DEXTROSE 50 ML IV SCH (13:14)
[2018-05-17 14:09] LABS: GLUCOMETER DEV NAME(LOC) 6N.1; GLUCOSE,POINT OF CARE 244 MG/DL (70-110)
[2018-05-17 15:34] VITALS: BP 128/58
[2018-05-17 17:54] LABS: GLUCOMETER DEV NAME(LOC) 6N.1; GLUCOSE,POINT OF CARE 235 MG/DL (70-110)
[2018-05-17 19:40] VITALS: BP 169/76
[2018-05-17] MEDS: SIMVASTATIN 10 MG TABLET PO SCH (20:12)
[2018-05-17] MEDS: CloNIDine HCL 0.1 MG TABLET PO PRN (20:13)
[2018-05-17] MEDS: ZOLPIDEM TARTRATE 10 MG TABLET PO SCH (20:17)
[2018-05-17] MEDS: INSULIN GLARGINE,HUM.REC.ANLOG 100 UNITS/ML SQ SCH (20:19)
[2018-05-17 21:24] LABS: GLUCOMETER DEV NAME(LOC) 6N.1; GLUCOSE,POINT OF CARE 261 MG/DL (70-110)
[2018-05-17 23:29] VITALS: BP 141/69
[2018-05-18 05:06] VITALS: BP 138/71
[2018-05-18] MEDS: LEVOTHYROXINE SODIUM 25 MCG TABLET PO SCH (05:50)
[2018-05-18] MEDS: INSULIN LISPRO 100 UNITS/ML SQ PRN ×2 (05:52→11:55)
[2018-05-18 05:58] LABS: GLUCOMETER DEV NAME(LOC) 6N.2; GLUCOSE,POINT OF CARE 141 MG/DL (70-110)
[2018-05-18 06:34] LABS: BASOPHILS % (AUTO) 0.6 % (0.0-2.0); EOSINOPHILS % (AUTO) 4.2 % (1.0-6.0); HEMATOCRIT 30.4 % (36-46); HEMOGLOBIN 10.5 g/dL (12.0-16.0); LYMPHOCYTES # (AUTO) 1.7 K/uL (1.0-4.8); LYMPHOCYTES % (AUTO) 25.7 % (22.0-44.0); MEAN CORPUSCULAR HEMOGLOBIN 27.4 pg (26.0-34.0); MEAN CORPUSCULAR HGB CONC 34.4 G/dL (31.0-37.0); MEAN CORPUSCULAR VOLUME 80 fL (80-100); MONOCYTES # (AUTO) 0.5 K/uL (0.1-1.0); MONOCYTES % (AUTO) 6.7 % (2.0-9.0); NEUTROPHILS # (AUTO) 4.2 K/uL (1.8-7.7); NEUTROPHILS % (AUTO) 62.8 % (40.0-70.0); PLATELET COUNT (AUTO) 340 K/uL (150-450); RED BLOOD CELL COUNT(AUTO) 3.81 MIL/uL (4.00-5.20); RED CELL DISTRIBUTION WIDTH 16.1 % (11.5-14.5)
[2018-05-18 06:39] LABS: CALCIUM, TOTAL 9.3 mg/dL (8.8-10.5); CREATININE 1.13 mg/dL (0.60-1.30); POTASSIUM 3.8 mmol/L (3.5-5.1)
[2018-05-18] MEDS: ACETAMINOPHEN 325 MG TABLET PO PRN (06:55)
[2018-05-18 08:00] VITALS: BP 182/92
[2018-05-18] MEDS: OMEGA-3/DHA/EPA/FISH OIL 1,000 MG CAPSULE PO SCH (08:26)
[2018-05-18] MEDS: PANTOPRAZOLE SODIUM 40 MG DR TABLET PO SCH (08:26)
[2018-05-18] MEDS: APIXABAN 2.5 MG TABLET PO SCH (08:26)
[2018-05-18] MEDS: NAPROXEN 500 MG TABLET PO SCH (08:27)
[2018-05-18] MEDS: CHOLECALCIFEROL (VIT D3) 1,000 UNITS TABLET PO SCH (08:27)
[2018-05-18] MEDS: METOPROLOL SUCCINATE 50 MG ER TABLET PO SCH (08:28)
[2018-05-18] MEDS: AmLODIPine BESYLATE 10 MG TABLET PO SCH (08:28)
[2018-05-18] MEDS: BENAZEPRIL HCL 20 MG TABLET PO SCH (08:28)
[2018-05-18] MEDS: DOCUSATE SODIUM 250 MG CAPSULE PO SCH (08:28)
[2018-05-18] MEDS: QUEtiapine FUMARATE 25 MG TABLET PO SCH (08:29)
[2018-05-18 09:40] VITALS: BP 154/77
[2018-05-18 11:54] VITALS: BP 138/66
[2018-05-18] MEDS ORDERED: ACETAMINOPHEN 325 MG TABLET PO PRN (13:00)
[2018-05-18] MEDS: CefTRIAXone 1 GM/DEXTROSE 50 ML IV SCH (14:13)
[2018-05-18 15:34] VITALS: BP 150/76
[2018-05-18 19:38] LABS: GLUCOMETER DEV NAME(LOC) 6N.2; GLUCOSE,POINT OF CARE 238 MG/DL (70-110)
== END 2018-05-18 15:45 | DRG 690 ==
LOC: EMS 17:06 → 6N 22:30
PROVIDERS: ADMIT Internal Medicine Geriatric Medicine; ATTEND Internal Medicine Geriatric Medicine
PROC: 3E0234Z Introduction of Serum, Toxoid and Vaccine into Muscle, Percutaneous Approach (ICD-10-PCS; 2018-05-15)
PROC: 0DB68ZX Excision of Stomach, Via Natural or Artificial Opening Endoscopic, Diagnostic (ICD-10-PCS; principal; 2018-05-15 12:45)
DX: N30.90 Cystitis, unspecified without hematuria (principal); I11.0 Hypertensive heart disease with heart failure; E11.65 Type 2 diabetes mellitus with hyperglycemia; K29.70 Gastritis, unspecified, without bleeding; I48.91 Unspecified atrial fibrillation; I50.9 Heart failure, unspecified; I65.21 Occlusion and stenosis of right carotid artery; D64.9 Anemia, unspecified; E11.51 Type 2 diabetes mellitus with diabetic peripheral angiopathy without gangrene; E78.00 Pure hypercholesterolemia, unspecified; F20.9 Schizophrenia, unspecified; K21.9 Gastro-esophageal reflux disease without esophagitis; K80.20 Calculus of gallbladder without cholecystitis without obstruction; Z23 Encounter for immunization
CPT/HCPCS: 74022; 76705; 80074; 83036; 83735; 84443; 86592; 87081; 87086; 88305; 88312; 88313; 90686; 93005; G0378; J0696; J1815; J2060; J2250; J2704; J3490; J7030; J7040

== ENCOUNTER 2018-07-28 17:12 | Inpatient (IN) | payer MEDICARE, MEDICAID ==
[~2018-07-28] VITALS: Ht 157.5 cm; Wt 84.1 kg
[~2018-07-28 17:12] MED LIST changes: -ICOS0.5C PO; +ICOS1CAP PO
[2018-07-28 18:45] LABS: BASOPHILS % (AUTO) 0.7 % (0.0-2.0); EOSINOPHILS % (AUTO) 4.7 % (1.0-6.0); HEMATOCRIT 34.4 % (36-46); HEMOGLOBIN 11.3 g/dL (12.0-16.0); LYMPHOCYTES # (AUTO) 1.7 K/uL (1.0-4.8); LYMPHOCYTES % (AUTO) 21.1 % (22.0-44.0); MEAN CORPUSCULAR HGB CONC 32.9 G/dL (31.0-37.0); MEAN CORPUSCULAR VOLUME 82 fL (80-100); MONOCYTES # (AUTO) 0.5 K/uL (0.1-1.0); MONOCYTES % (AUTO) 6.5 % (2.0-9.0); NEUTROPHILS # (AUTO) 5.4 K/uL (1.8-7.7); PLATELET COUNT (AUTO) 424 K/uL (150-450); RED BLOOD CELL COUNT(AUTO) 4.19 MIL/uL (4.00-5.20); RED CELL DISTRIBUTION WIDTH 16.2 % (11.5-14.5)
[2018-07-28 18:57] LABS: ALBUMIN 3.4 g/dL (3.4-5.0); BILIRUBIN,TOTAL 0.3 mg/dL (0.1-1.0); CALCIUM, TOTAL 9.4 mg/dL (8.8-10.5); CREATININE 1.25 mg/dL (0.60-1.30); TOTAL PROTEIN, SERUM 8.7 g/dL (6.4-8.2)
[2018-07-28 19:01] LABS: POTASSIUM 3.9 mmol/L (3.5-5.1)
[2018-07-28] MEDS ORDERED: KETOROLAC TROMETHAMINE 30 MG/ML VIAL IVP ONE (19:15)
[2018-07-28] MEDS ORDERED: PIPERACILLIN/TAZO 3.375 GM/D5W 50 ML IV ONE (22:30)
[2018-07-28] MEDS ORDERED: ONDANSETRON HCL 4 MG/2 ML VIAL IVP PRN ×2 (22:30→23:30)
[2018-07-28] MEDS ORDERED: LORazepam 1 MG TABLET PO ONE (22:30)
[2018-07-28] MEDS ORDERED: ACETAMINOPHEN 325 MG TABLET PO PRN (22:30)
[2018-07-28] MEDS ORDERED: 0.9% SODIUM CHLORIDE 10 ML SYRINGE IVP PRN (22:30)
[2018-07-28] MEDS ORDERED: MAGNESIUM HYDROXIDE SUSPENSION 30 ML UDCUP PO PRN (23:30)
[2018-07-28] MEDS ORDERED: CloNIDine HCL 0.1 MG TABLET PO PRN (23:30)
[2018-07-28] MEDS ORDERED: DEXTROSE 50%-WATER 25 GM/50 ML SYRINGE IVP PRN (23:30)
[2018-07-28] MEDS ORDERED: ALBUTEROL SULFATE 2.5 MG/0.5 ML NEB SOLUTION NEB PRN (23:30)
[2018-07-28] MEDS ORDERED: IPRATROPIUM BROMIDE 0.5 MG/2.5 ML NEB SOLUTION NEB PRN (23:30)
[2018-07-28] MEDS ORDERED: BISACODYL 10 MG RECTAL RECTAL SUPPOSITORY PR PRN (23:30)
[2018-07-29 00:33] VITALS: BP 158/78
[2018-07-29] MEDS ORDERED: SODIUM CHLORIDE 0.9% 500 ML IV ONE (00:41)
[2018-07-29] MEDS: MORPHINE SULFATE 2 MG/ML SYRINGE IVP PRN ×2 (00:54→16:52)
[2018-07-29] MEDS: ACETAMINOPHEN 325 MG TABLET PO PRN ×3 (04:36→20:14)
[2018-07-29 04:41] VITALS: BP 152/81
[2018-07-29] MEDS: PIPERACILLIN SODIUM/TAZOBACTAM 2.25 GM in DEXTROSE 5%-WATER 50 ML IV SCH ×4 (05:35→23:53)
[2018-07-29] MEDS ORDERED: LEVOTHYROXINE SODIUM 25 MCG TABLET PO SCH (06:30)
[2018-07-29 06:40] LABS: BASOPHILS % (AUTO) 0.9 % (0.0-2.0); EOSINOPHILS % (AUTO) 5.1 % (1.0-6.0); HEMATOCRIT 34.7 % (36-46); HEMOGLOBIN 11.1 g/dL (12.0-16.0); LYMPHOCYTES # (AUTO) 2.4 K/uL (1.0-4.8); LYMPHOCYTES % (AUTO) 24.8 % (22.0-44.0); MEAN CORPUSCULAR VOLUME 81 fL (80-100); MONOCYTES # (AUTO) 0.7 K/uL (0.1-1.0); MONOCYTES % (AUTO) 6.9 % (2.0-9.0); NEUTROPHILS % (AUTO) 62.3 % (40.0-70.0); PLATELET COUNT (AUTO) 422 K/uL (150-450); RED BLOOD CELL COUNT(AUTO) 4.28 MIL/uL (4.00-5.20); RED CELL DISTRIBUTION WIDTH 15.9 % (11.5-14.5)
[2018-07-29 06:59] LABS: ALBUMIN 3.5 g/dL (3.4-5.0); BILIRUBIN,TOTAL 0.3 mg/dL (0.1-1.0); CALCIUM, TOTAL 9.6 mg/dL (8.8-10.5); CHOL/HDL RATIO 5.8 (3.9-5.7); CREATININE 1.27 mg/dL (0.60-1.30); FREE T4 (FREE THYROXINE) 1.19 ng/dL (0.76-1.46); THYROID STIMULATING HORMONE 5.03 uIU/mL (0.36-3.74)
[2018-07-29 07:08] LABS: HEMOGLOBIN A1C 8.5 % (4.5-6.2)
[2018-07-29 07:30] VITALS: BP 146/71
[2018-07-29] MEDS: BENAZEPRIL HCL 20 MG TABLET PO SCH (08:36)
[2018-07-29] MEDS: BETHANECHOL CHLORIDE 25 MG TABLET PO SCH (08:36)
[2018-07-29] MEDS: QUEtiapine FUMARATE 25 MG TABLET PO SCH (08:36)
[2018-07-29] MEDS: PANTOPRAZOLE SODIUM 40 MG DR TABLET PO SCH (08:36)
[2018-07-29] MEDS: DOCUSATE SODIUM 250 MG CAPSULE PO SCH (08:36)
[2018-07-29] MEDS: AmLODIPine BESYLATE 10 MG TABLET PO SCH (08:36)
[2018-07-29] MEDS: CHOLECALCIFEROL (VIT D3) 1,000 UNITS TABLET PO SCH (08:39)
[2018-07-29 11:34] VITALS: BP 138/69
[2018-07-29 11:39] LABS: GLUCOMETER DEV NAME(LOC) 5N.2; GLUCOSE,POINT OF CARE 122 MG/DL (70-110)
[2018-07-29 11:40] LABS: GLUCOMETER DEV NAME(LOC) 5N.2; GLUCOSE,POINT OF CARE 196 MG/DL (70-110)
[2018-07-29] MEDS: INSULIN LISPRO 100 UNITS/ML SQ PRN ×2 (11:55→20:24)
[2018-07-29 16:13] VITALS: BP 145/78
[2018-07-29 17:57] LABS: APPEARANCE,URINE CLOUDY (CLEAR); BILIRUBIN,URINE NEGATIVE (NEGATIVE); GLUCOSE, URINE (UA) 100 mg/dL (NEGATIVE); KETONES,URINE NEGATIVE (NEGATIVE); LEUKOCYTE ESTERASE ,URINE MODERATE (NEGATIVE); NITRATE,URINE NEGATIVE (NEGATIVE); OCCULT BLOOD,URINE LARGE (NEGATIVE); PROTEIN,URINE SEE CONFIRM (NEGATIVE); UROBILINOGEN,URINE 0.2 mg/dL (<=1.0)
[2018-07-29 18:10] LABS: SULFOSALICYLIC ACID,URINE 3+ (Negative)
[2018-07-29 18:11] LABS: BACTERIA,URINE Few /HPF (None Seen); RBC,URINE 26-50 /HPF (0-2); SQUAMOUS EPITHELIAL CELL,UR Moderate /LPF (None Seen); WBC,URINE 51-100 /HPF (0-5)
[2018-07-29 19:54] LABS: GLUCOMETER DEV NAME(LOC) 5N.2; GLUCOSE,POINT OF CARE 132 MG/DL (70-110)
[2018-07-29 20:01] VITALS: BP 134/75
[2018-07-29] MEDS: INSULIN GLARGINE,HUM.REC.ANLOG 100 UNITS/ML SQ SCH (20:23)
[2018-07-30 00:26] VITALS: BP 142/66
[2018-07-30 04:25] VITALS: BP 151/78
[2018-07-30] MEDS: LEVOTHYROXINE SODIUM 50 MCG TABLET PO SCH (06:30)
[2018-07-30] MEDS: PIPERACILLIN SODIUM/TAZOBACTAM 2.25 GM in DEXTROSE 5%-WATER 50 ML IV SCH ×4 (06:33→23:09)
[2018-07-30 07:30] VITALS: BP 148/67
[2018-07-30 07:44] LABS: GLUCOMETER DEV NAME(LOC) 5N.1; GLUCOSE,POINT OF CARE 96 MG/DL (70-110)
[2018-07-30 08:43] LABS: PROTHROMBIN TIME 10.4 SEC (9.4-11.6)
[2018-07-30] MEDS: CHOLECALCIFEROL (VIT D3) 1,000 UNITS TABLET PO SCH (09:00)
[2018-07-30] MEDS: DOCUSATE SODIUM 250 MG CAPSULE PO SCH (09:00)
[2018-07-30] MEDS: BENAZEPRIL HCL 20 MG TABLET PO SCH (09:00)
[2018-07-30] MEDS: AmLODIPine BESYLATE 10 MG TABLET PO SCH (09:00)
[2018-07-30] MEDS: PANTOPRAZOLE SODIUM 40 MG DR TABLET PO SCH (09:00)
[2018-07-30] MEDS: QUEtiapine FUMARATE 25 MG TABLET PO SCH (09:00)
[2018-07-30] MEDS ORDERED: SODIUM CHLORIDE 0.9% 1,000 ML IV ONE ×2 (09:00)
[2018-07-30] MEDS: BETHANECHOL CHLORIDE 25 MG TABLET PO SCH (09:00)
[2018-07-30] MEDS ORDERED: FentaNYL CITRATE-PF 100 MCG/2 ML VIAL IVP PRN (11:15)
[2018-07-30] MEDS ORDERED: MEPERIDINE-PF 25 MG/ML VIAL IVP PRN (11:15)
[2018-07-30] MEDS ORDERED: HYDROmorphone 2 MG/ML SYRINGE IVP PRN (11:15)
[2018-07-30 11:55] VITALS: BP 159/71
[2018-07-30] MEDS ORDERED: FentaNYL CITRATE-PF 100 MCG/2 ML VIAL IVP ONE (12:00)
[2018-07-30] MEDS: MORPHINE SULFATE 2 MG/ML SYRINGE IVP PRN ×2 (12:43→22:35)
[2018-07-30 19:50] LABS: GLUCOMETER DEV NAME(LOC) 5N.1; GLUCOSE,POINT OF CARE 101 MG/DL (70-110)
[2018-07-30 19:50] LABS: GLUCOMETER DEV NAME(LOC) 5N.1; GLUCOSE,POINT OF CARE 140 MG/DL (70-110)
[2018-07-30 19:50] LABS: GLUCOMETER DEV NAME(LOC) 5N.2; GLUCOSE,POINT OF CARE 171 MG/DL (70-110)
[2018-07-30 20:05] VITALS: BP 144/79
[2018-07-30] MEDS: OXYGEN THERAPY IH SCH (21:08)
[2018-07-30] MEDS: ACETAMINOPHEN 325 MG TABLET PO PRN (21:08)
[2018-07-30] MEDS: INSULIN GLARGINE,HUM.REC.ANLOG 100 UNITS/ML SQ SCH (21:10)
[2018-07-30] MEDS: INSULIN LISPRO 100 UNITS/ML SQ PRN (21:11)
[2018-07-30 21:59] LABS: GLUCOMETER DEV NAME(LOC) 5N.1; GLUCOSE,POINT OF CARE 181 MG/DL (70-110)
[2018-07-31 00:24] VITALS: BP 123/67
[2018-07-31] MEDS: ZOLPIDEM TARTRATE 5 MG TABLET PO PRN ×2 (00:28→20:47)
[2018-07-31 04:00] VITALS: BP 144/78
[2018-07-31] MEDS: PIPERACILLIN SODIUM/TAZOBACTAM 2.25 GM in DEXTROSE 5%-WATER 50 ML IV SCH ×3 (06:37→17:46)
[2018-07-31] MEDS: LEVOTHYROXINE SODIUM 50 MCG TABLET PO SCH (06:37)
[2018-07-31 07:00] LABS: GLUCOMETER DEV NAME(LOC) 5N.1; GLUCOSE,POINT OF CARE 105 MG/DL (70-110)
[2018-07-31] MEDS ORDERED: LIDOCAINE/PF 2% 5 ML SYRINGE IVP ONE (07:16)
[2018-07-31] MEDS ORDERED: ONDANSETRON HCL 4 MG/2 ML VIAL IVP ONE (07:16)
[2018-07-31] MEDS ORDERED: PROPOFOL 1% 20 ML VIAL IVP ONE (07:16)
[2018-07-31] MEDS: OXYGEN THERAPY IH SCH ×2 (08:00→20:00)
[2018-07-31 08:11] VITALS: BP 169/90
[2018-07-31] MEDS: DOCUSATE SODIUM 250 MG CAPSULE PO SCH (08:25)
[2018-07-31] MEDS: MORPHINE SULFATE 2 MG/ML SYRINGE IVP PRN ×3 (09:10→19:08)
[2018-07-31] MEDS: CHOLECALCIFEROL (VIT D3) 1,000 UNITS TABLET PO SCH (09:15)
[2018-07-31] MEDS: PANTOPRAZOLE SODIUM 40 MG DR TABLET PO SCH (09:15)
[2018-07-31] MEDS: BETHANECHOL CHLORIDE 25 MG TABLET PO SCH (09:16)
[2018-07-31] MEDS: QUEtiapine FUMARATE 25 MG TABLET PO SCH (09:16)
[2018-07-31] MEDS: AmLODIPine BESYLATE 10 MG TABLET PO SCH (09:16)
[2018-07-31] MEDS: BENAZEPRIL HCL 20 MG TABLET PO SCH (09:16)
[2018-07-31 11:42] VITALS: BP 132/97
[2018-07-31] MEDS: INSULIN LISPRO 100 UNITS/ML SQ PRN ×2 (12:01→20:54)
[2018-07-31 14:25] LABS: GLUCOMETER DEV NAME(LOC) 5N.2; GLUCOSE,POINT OF CARE 165 MG/DL (70-110)
[2018-07-31 15:10] VITALS: BP 130/71
[2018-07-31 19:00] VITALS: BP 135/69
[2018-07-31 19:39] LABS: GLUCOMETER DEV NAME(LOC) 5N.2; GLUCOSE,POINT OF CARE 102 MG/DL (70-110)
[2018-07-31] MEDS: ACYCLOVIR 200 MG CAPSULE PO SCH (20:47)
[2018-07-31] MEDS: INSULIN GLARGINE,HUM.REC.ANLOG 100 UNITS/ML SQ SCH (20:55)
[2018-08-01] VITALS (7 sets, daily range): BP systolic 122–151; BP diastolic 56–76
[2018-08-01 05:29] LABS: GLUCOMETER DEV NAME(LOC) 5N.2; GLUCOSE,POINT OF CARE 206 MG/DL (70-110)
[2018-08-01] MEDS: LEVOTHYROXINE SODIUM 50 MCG TABLET PO SCH (05:35)
[2018-08-01] MEDS: PIPERACILLIN SODIUM/TAZOBACTAM 2.25 GM in DEXTROSE 5%-WATER 50 ML IV SCH ×6 (05:35→23:34)
[2018-08-01 06:25] LABS: GLUCOMETER DEV NAME(LOC) 5N.2; GLUCOSE,POINT OF CARE 102 MG/DL (70-110)
[2018-08-01 07:11] LABS: BASOPHILS % (AUTO) 1.1 % (0.0-2.0); EOSINOPHILS % (AUTO) 7.5 % (1.0-6.0); HEMATOCRIT 30.4 % (36-46); HEMOGLOBIN 9.7 g/dL (12.0-16.0); LYMPHOCYTES # (AUTO) 1.7 K/uL (1.0-4.8); LYMPHOCYTES % (AUTO) 25.6 % (22.0-44.0); MEAN CORPUSCULAR HEMOGLOBIN 26.2 pg (26.0-34.0); MEAN CORPUSCULAR HGB CONC 31.9 G/dL (31.0-37.0); MEAN CORPUSCULAR VOLUME 82 fL (80-100); MONOCYTES # (AUTO) 0.6 K/uL (0.1-1.0); MONOCYTES % (AUTO) 8.5 % (2.0-9.0); NEUTROPHILS # (AUTO) 3.8 K/uL (1.8-7.7); NEUTROPHILS % (AUTO) 57.3 % (40.0-70.0); PLATELET COUNT (AUTO) 338 K/uL (150-450); RED BLOOD CELL COUNT(AUTO) 3.69 MIL/uL (4.00-5.20)
[2018-08-01 07:28] LABS: ALBUMIN 2.7 g/dL (3.4-5.0); BILIRUBIN,TOTAL 0.3 mg/dL (0.1-1.0); CALCIUM, TOTAL 9.2 mg/dL (8.8-10.5); CREATININE 1.21 mg/dL (0.60-1.30); POTASSIUM 3.7 mmol/L (3.5-5.1); TOTAL PROTEIN, SERUM 7.4 g/dL (6.4-8.2)
[2018-08-01] MEDS: OXYGEN THERAPY IH SCH (08:00)
[2018-08-01] MEDS: AmLODIPine BESYLATE 10 MG TABLET PO SCH (08:43)
[2018-08-01] MEDS: DOCUSATE SODIUM 250 MG CAPSULE PO SCH (08:44)
[2018-08-01] MEDS: CHOLECALCIFEROL (VIT D3) 1,000 UNITS TABLET PO SCH (08:44)
[2018-08-01] MEDS: MULTIVITAMINS WITH MINERALS, THERAPEUTIC TABLET PO SCH (08:44)
[2018-08-01] MEDS: BETHANECHOL CHLORIDE 25 MG TABLET PO SCH (08:44)
[2018-08-01] MEDS: QUEtiapine FUMARATE 25 MG TABLET PO SCH (08:44)
[2018-08-01] MEDS: ACYCLOVIR 200 MG CAPSULE PO SCH ×3 (08:44→20:59)
[2018-08-01] MEDS: BENAZEPRIL HCL 20 MG TABLET PO SCH (08:44)
[2018-08-01] MEDS: PANTOPRAZOLE SODIUM 40 MG DR TABLET PO SCH (08:44)
[2018-08-01] MEDS: INSULIN LISPRO 100 UNITS/ML SQ PRN ×3 (12:19→20:58)
[2018-08-01 13:04] LABS: GLUCOMETER DEV NAME(LOC) 5N.2; GLUCOSE,POINT OF CARE 157 MG/DL (70-110)
[2018-08-01] MEDS: ACETAMINOPHEN 325 MG TABLET PO PRN (13:49)
[2018-08-01] MEDS: MORPHINE SULFATE 2 MG/ML SYRINGE IVP PRN (14:37)
[2018-08-01 17:45] LABS: GLUCOMETER DEV NAME(LOC) 5N.2; GLUCOSE,POINT OF CARE 154 MG/DL (70-110)
[2018-08-01] MEDS: INSULIN GLARGINE,HUM.REC.ANLOG 100 UNITS/ML SQ SCH (20:59)
[2018-08-01] MEDS: ZOLPIDEM TARTRATE 5 MG TABLET PO PRN (20:59)
[2018-08-01 23:45] LABS: GLUCOMETER DEV NAME(LOC) 5N.2; GLUCOSE,POINT OF CARE 182 MG/DL (70-110)
[2018-08-02] MEDS: ACETAMINOPHEN 325 MG TABLET PO PRN ×2 (00:58→16:03)
[2018-08-02] MEDS: MORPHINE SULFATE 2 MG/ML SYRINGE IVP PRN ×3 (04:03→18:35)
[2018-08-02 04:30] VITALS: BP 143/69
[2018-08-02] MEDS: LEVOTHYROXINE SODIUM 50 MCG TABLET PO SCH (05:35)
[2018-08-02] MEDS: PIPERACILLIN SODIUM/TAZOBACTAM 2.25 GM in DEXTROSE 5%-WATER 50 ML IV SCH ×4 (05:35→23:19)
[2018-08-02] MEDS: INSULIN LISPRO 100 UNITS/ML SQ PRN ×4 (05:41→21:01)
[2018-08-02 06:44] LABS: GLUCOMETER DEV NAME(LOC) 5N.2; GLUCOSE,POINT OF CARE 152 MG/DL (70-110)
[2018-08-02 06:55] LABS: BASOPHILS % (AUTO) 0.6 % (0.0-2.0); EOSINOPHILS % (AUTO) 6.7 % (1.0-6.0); HEMATOCRIT 27.9 % (36-46); HEMOGLOBIN 9.1 g/dL (12.0-16.0); LYMPHOCYTES # (AUTO) 1.6 K/uL (1.0-4.8); LYMPHOCYTES % (AUTO) 20.9 % (22.0-44.0); MEAN CORPUSCULAR HEMOGLOBIN 26.4 pg (26.0-34.0); MEAN CORPUSCULAR HGB CONC 32.7 G/dL (31.0-37.0); MEAN CORPUSCULAR VOLUME 81 fL (80-100); MONOCYTES # (AUTO) 0.6 K/uL (0.1-1.0); MONOCYTES % (AUTO) 7.7 % (2.0-9.0); NEUTROPHILS # (AUTO) 4.9 K/uL (1.8-7.7); NEUTROPHILS % (AUTO) 64.1 % (40.0-70.0); PLATELET COUNT (AUTO) 353 K/uL (150-450); RED BLOOD CELL COUNT(AUTO) 3.46 MIL/uL (4.00-5.20); RED CELL DISTRIBUTION WIDTH 16.3 % (11.5-14.5)
[2018-08-02 08:12] VITALS: BP 135/51
[2018-08-02] MEDS: ACYCLOVIR 200 MG CAPSULE PO SCH ×3 (09:06→20:58)
[2018-08-02] MEDS: CHOLECALCIFEROL (VIT D3) 1,000 UNITS TABLET PO SCH (09:07)
[2018-08-02] MEDS: BENAZEPRIL HCL 20 MG TABLET PO SCH (09:07)
[2018-08-02] MEDS: PANTOPRAZOLE SODIUM 40 MG DR TABLET PO SCH (09:07)
[2018-08-02] MEDS: MULTIVITAMINS WITH MINERALS, THERAPEUTIC TABLET PO SCH (09:07)
[2018-08-02] MEDS: AmLODIPine BESYLATE 10 MG TABLET PO SCH (09:07)
[2018-08-02] MEDS: BETHANECHOL CHLORIDE 25 MG TABLET PO SCH (09:07)
[2018-08-02] MEDS: DOCUSATE SODIUM 250 MG CAPSULE PO SCH (09:07)
[2018-08-02] MEDS: QUEtiapine FUMARATE 25 MG TABLET PO SCH (09:12)
[2018-08-02 11:20] VITALS: BP 138/72
[2018-08-02 13:49] LABS: GLUCOMETER DEV NAME(LOC) 5N.2; GLUCOSE,POINT OF CARE 178 MG/DL (70-110)
[2018-08-02 18:45] LABS: GLUCOMETER DEV NAME(LOC) 5N.2; GLUCOSE,POINT OF CARE 160 MG/DL (70-110)
[2018-08-02] MEDS: ZOLPIDEM TARTRATE 5 MG TABLET PO PRN (20:58)
[2018-08-02] MEDS: INSULIN GLARGINE,HUM.REC.ANLOG 100 UNITS/ML SQ SCH (21:01)
[2018-08-02 21:36] VITALS: BP 156/70
[2018-08-03] MEDS: MORPHINE SULFATE 2 MG/ML SYRINGE IVP PRN ×3 (02:01→19:40)
[2018-08-03 05:10] VITALS: BP 142/69
[2018-08-03] MEDS: PIPERACILLIN SODIUM/TAZOBACTAM 2.25 GM in DEXTROSE 5%-WATER 50 ML IV SCH ×4 (06:15→23:54)
[2018-08-03] MEDS: LEVOTHYROXINE SODIUM 50 MCG TABLET PO SCH (06:15)
[2018-08-03 06:59] LABS: GLUCOMETER DEV NAME(LOC) 5N.1; GLUCOSE,POINT OF CARE 115 MG/DL (70-110)
[2018-08-03 07:08] LABS: BASOPHILS % (AUTO) 0.8 % (0.0-2.0); EOSINOPHILS % (AUTO) 7.4 % (1.0-6.0); HEMATOCRIT 28.1 % (36-46); HEMOGLOBIN 9.1 g/dL (12.0-16.0); LYMPHOCYTES # (AUTO) 1.5 K/uL (1.0-4.8); LYMPHOCYTES % (AUTO) 23.4 % (22.0-44.0); MEAN CORPUSCULAR HEMOGLOBIN 26.4 pg (26.0-34.0); MEAN CORPUSCULAR HGB CONC 32.4 G/dL (31.0-37.0); MEAN CORPUSCULAR VOLUME 82 fL (80-100); MONOCYTES # (AUTO) 0.6 K/uL (0.1-1.0); MONOCYTES % (AUTO) 9.8 % (2.0-9.0); NEUTROPHILS # (AUTO) 3.8 K/uL (1.8-7.7); NEUTROPHILS % (AUTO) 58.6 % (40.0-70.0); PLATELET COUNT (AUTO) 340 K/uL (150-450); RED BLOOD CELL COUNT(AUTO) 3.44 MIL/uL (4.00-5.20); RED CELL DISTRIBUTION WIDTH 15.6 % (11.5-14.5)
[2018-08-03 07:24] LABS: GLUCOMETER DEV NAME(LOC) 5N.2; GLUCOSE,POINT OF CARE 152 MG/DL (70-110)
[2018-08-03 07:24] LABS: CALCIUM, TOTAL 9.4 mg/dL (8.8-10.5); CREATININE 1.19 mg/dL (0.60-1.30); POTASSIUM 3.8 mmol/L (3.5-5.1)
[2018-08-03] MEDS: OXYGEN THERAPY IH SCH (08:00)
[2018-08-03 08:23] VITALS: BP 106/59
[2018-08-03] MEDS: PANTOPRAZOLE SODIUM 40 MG DR TABLET PO SCH (09:02)
[2018-08-03] MEDS: AmLODIPine BESYLATE 10 MG TABLET PO SCH (09:02)
[2018-08-03] MEDS: CHOLECALCIFEROL (VIT D3) 1,000 UNITS TABLET PO SCH (09:02)
[2018-08-03] MEDS: DOCUSATE SODIUM 250 MG CAPSULE PO SCH (09:02)
[2018-08-03] MEDS: BETHANECHOL CHLORIDE 25 MG TABLET PO SCH (09:02)
[2018-08-03] MEDS: MULTIVITAMINS WITH MINERALS, THERAPEUTIC TABLET PO SCH (09:02)
[2018-08-03] MEDS: QUEtiapine FUMARATE 25 MG TABLET PO SCH (09:02)
[2018-08-03] MEDS: ACETAMINOPHEN 325 MG TABLET PO PRN ×2 (09:02→16:35)
[2018-08-03] MEDS: ACYCLOVIR 200 MG CAPSULE PO SCH ×3 (09:02→20:37)
[2018-08-03] MEDS: BENAZEPRIL HCL 20 MG TABLET PO SCH (09:03)
[2018-08-03 12:00] VITALS: BP 146/69
[2018-08-03] MEDS: INSULIN LISPRO 100 UNITS/ML SQ PRN ×2 (12:05→21:09)
[2018-08-03 16:18] VITALS: BP 156/57
[2018-08-03 19:19] LABS: GLUCOMETER DEV NAME(LOC) 5N.1; GLUCOSE,POINT OF CARE 164 MG/DL (70-110)
[2018-08-03 19:19] LABS: GLUCOMETER DEV NAME(LOC) 5N.1; GLUCOSE,POINT OF CARE 139 MG/DL (70-110)
[2018-08-03 20:36] VITALS: BP 146/69
[2018-08-03] MEDS: ZOLPIDEM TARTRATE 5 MG TABLET PO PRN (20:37)
[2018-08-03] MEDS: INSULIN GLARGINE,HUM.REC.ANLOG 100 UNITS/ML SQ SCH (21:10)
[2018-08-03 23:57] VITALS: BP 153/73
[2018-08-04 04:00] VITALS: BP 141/62
[2018-08-04] MEDS: ACETAMINOPHEN 325 MG TABLET PO PRN ×2 (05:34→11:25)
[2018-08-04] MEDS: PIPERACILLIN SODIUM/TAZOBACTAM 2.25 GM in DEXTROSE 5%-WATER 50 ML IV SCH ×2 (05:34→11:00)
[2018-08-04] MEDS: LEVOTHYROXINE SODIUM 50 MCG TABLET PO SCH (05:34)
[2018-08-04] MEDS: INSULIN LISPRO 100 UNITS/ML SQ PRN ×2 (05:50→11:08)
[2018-08-04 06:04] LABS: GLUCOMETER DEV NAME(LOC) 5N.1; GLUCOSE,POINT OF CARE 164 MG/DL (70-110)
[2018-08-04] MEDS: OXYGEN THERAPY IH SCH (08:00)
[2018-08-04 08:29] VITALS: BP 145/70
[2018-08-04] MEDS: MULTIVITAMINS WITH MINERALS, THERAPEUTIC TABLET PO SCH (08:39)
[2018-08-04] MEDS: DOCUSATE SODIUM 250 MG CAPSULE PO SCH (08:39)
[2018-08-04] MEDS: AmLODIPine BESYLATE 10 MG TABLET PO SCH (08:40)
[2018-08-04] MEDS: BENAZEPRIL HCL 20 MG TABLET PO SCH (08:40)
[2018-08-04] MEDS: PANTOPRAZOLE SODIUM 40 MG DR TABLET PO SCH (08:40)
[2018-08-04] MEDS: BETHANECHOL CHLORIDE 25 MG TABLET PO SCH (08:40)
[2018-08-04] MEDS: ACYCLOVIR 200 MG CAPSULE PO SCH (08:40)
[2018-08-04] MEDS: CHOLECALCIFEROL (VIT D3) 1,000 UNITS TABLET PO SCH (08:40)
[2018-08-04] MEDS: QUEtiapine FUMARATE 25 MG TABLET PO SCH (08:40)
[2018-08-04] MEDS: MORPHINE SULFATE 2 MG/ML SYRINGE IVP PRN (10:14)
[2018-08-04 17:59] LABS: GLUCOMETER DEV NAME(LOC) 5N.2; GLUCOSE,POINT OF CARE 231 MG/DL (70-110)
[2018-08-04 17:59] LABS: GLUCOMETER DEV NAME(LOC) 5N.1; GLUCOSE,POINT OF CARE 231 MG/DL (70-110)
== END 2018-08-04 12:25 | DRG 580 ==
LOC: EMS 17:12 → 5N 22:30
PROVIDERS: ADMIT Internal Medicine Geriatric Medicine; ATTEND Internal Medicine Geriatric Medicine
PROC: 0W9F0ZZ Drainage of Abdominal Wall, Open Approach (ICD-10-PCS; principal; 2018-07-30 10:00)
DX: L02.211 Cutaneous abscess of abdominal wall (principal); I50.32 Chronic diastolic (congestive) heart failure; I13.0 Hypertensive heart and chronic kidney disease with heart failure and stage 1 through stage 4 chronic kidney disease, or unspecified chronic kidney disease; E11.9 Type 2 diabetes mellitus without complications; D64.9 Anemia, unspecified; K21.9 Gastro-esophageal reflux disease without esophagitis; E03.9 Hypothyroidism, unspecified; K59.00 Constipation, unspecified; N18.3 Chronic kidney disease, stage 3 (moderate); N30.90 Cystitis, unspecified without hematuria; E78.00 Pure hypercholesterolemia, unspecified; E11.22 Type 2 diabetes mellitus with diabetic chronic kidney disease; M19.90 Unspecified osteoarthritis, unspecified site; K42.9 Umbilical hernia without obstruction or gangrene; I48.91 Unspecified atrial fibrillation; F32.9 Major depressive disorder, single episode, unspecified; F20.9 Schizophrenia, unspecified; Z83.3 Family history of diabetes mellitus; Z90.49 Acquired absence of other specified parts of digestive tract; Z82.49 Family history of ischemic heart disease and other diseases of the circulatory system
CPT/HCPCS: 74176; 83036; 83735; 84439; 84443; 86695; 86696; 87070; 87081; 87086; 93005; 93306; 96365; 96375; G0378; J1815; J1885; J2270; J2405; J2543; J2704; J3010; J3490; J7030; J7040; J7060